=== PATIENT | female | born 1970 | race Caucasian/White ===

== ENCOUNTER 2016-09-30 21:13 | Inpatient (IN) | payer MEDICAID ==
[~2016-09-30] VITALS: Ht 152.4 cm; Wt 77.0 kg
--- NOTE | ~2016-09-30 | CON ---
PATIENT'S NAME: WILLAM RODRIGUEZ [facility] AGE: 45 Y [address] ROOM: [address] [address] LOCATION: [facility] [place] ADMIT DATE: 10/01/2016 Consultation DISCHARGE DATE: 10/07/2016 FAMILY PHYSICIAN: Kary Moreland ATTENDING PHYSICIAN: Harmeet York V DATE OF CONSULTATION: 10/02/2016 REFERRING PHYSICIAN: Trevon Paniagua MD TIME: 12:05 p.m. CHIEF COMPLAINT: Headache. HISTORY OF PRESENT ILLNESS: This is a previously healthy, 45-year-old female. For the past 3 days, she has been getting treated for migraines. They began about 72 hours ago and have become progressive and intractable. She has been to the ED for medications and actually went to her primary care physician and was started on Topamax. She describes the pain as in the forehead region and retrobulbar eye pain. She is definitely photophobic and phonophobic. There is no nuchal rigidity noted. There are no fevers, chills, or diaphoresis with this. She does have some nausea and a few episodes of vomiting. Previously tried medications include Toradol, Topamax, Dilaudid, and Zofran. She has also tried oxygen therapy. Her symptoms have not improved at all. She returned to the ED yesterday where she had an MRI which showed no acute intracranial abnormality and some scattered white matter foci of hyperintensity which is usually associated with chronic microangiopathy which would be consistent with migraine headache. She denies any chest pain or shortness of breath. She has had no recent contact with anyone ill. 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 REVIEW OF SYSTEMS: All systems have been reviewed and are negative aside from the pertinent positives and negatives as mentioned in the HPI. PAST MEDICAL HISTORY: She has had 4 sections. She also has some anxiety. CURRENT MEDICATIONS: 1. Topamax, which was started several days ago. 2. Unisom, which the patient started several months ago. 3. Bactrim p.r.n. as needed for UTIs. PATIENT'S NAME: WILLAM RODRIGUEZ [facility] AGE: 45 Y [address] 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 She smokes 1 to 2 cigarettes a day and denies any drug or alcohol abuse. FAMILY HISTORY: Significant for early-onset glaucoma in her sister. Her mother of bladder cancer, and her father has coronary artery disease. PHYSICAL EXAMINATION: VITAL SIGNS: Blood pressure 102/78, pulse 76, respirations 16, temperature 98.2, and saturating 94% on room air. GENERAL APPEARANCE: Well-developed, well-nourished female who appears her stated age, but appears in mild distress due to her headache and avoiding light. NEUROLOGICAL: She is alert and oriented x4. There is no nuchal rigidity. Cranial nerves 2 through 12 are intact. Gait not assessed due to the patient not feeling well. Pupils equal, round, and reactive to light and accommodation. Extraocular movements are intact. Motor strength is 5/5 upper and lower. Ntghzs-yi-ulmj and inzi-mg-ffiy testing intact. No dysmetria noted. LUNGS: Clear to auscultation. HEART: Regular rate with no murmurs, gallops, or rubs. ABDOMEN: Soft, nontender, and nondistended. GENITOURINARY: No costovertebral angle tenderness. DIAGNOSTIC STUDIES: Include the MRI which is unremarkable for any acute processes. She also had a CBC which revealed a white count of 8.0, a hemoglobin of 14.3, a hematocrit of 41.6, neutrophils were 6.5, and lymphocytes were 0.9. ASSESSMENT AND PLAN: In summary, this is a 45-year-old who really has never had migraines before. Her CBC and MRI appear within normal limits. She has no fevers or neck stiffness. This looks like an intractable migraine with status migrainosus. We will give Depakote IV at 15 mg a kg as a loading dose and then follow it q.8 hours with a maintenance dose. We will piggyback this with Toradol and then check her response in 24 hours. Thank you for allowing us to assist in the patient's care. JYOTI LOONEY APRN FOR FREEDOM MARK MD PATIENT'S NAME: WILLAM RODRIGUEZ [facility] AGE: 45 Y [address] ROOM: [place] [address] LOCATION: [facility] [place] ADMIT DATE: 10/01/2016 Consultation DISCHARGE DATE: 10/07/2016 FAMILY PHYSICIAN: Kary Moreland ATTENDING PHYSICIAN: Harmeet York PP/kevin /[id number] d: 10/15/16 1149 t: 10/17/16 1729, CONSULTATION REPORT
--- NOTE | ~2016-09-30 | CON ---
PATIENT'S NAME: WILLAM RODRIGUEZ [facility] AGE: 45 Y [address] ROOM: [address] [address] LOCATION: [facility] [place] ADMIT DATE: 10/01/2016 Consultation DISCHARGE DATE: FAMILY PHYSICIAN: Kary Moreland ATTENDING PHYSICIAN: MONSTER ALICIA V REFERRING PHYSICIAN: Trevon Paniagua MD I have seen the patient examined the patient via telemedicine. I have reviewed records and notes by Ms. Anabela Zamudio APRN and I agreed with her assessment. . The patient is a very pleasant 45-year-old woman with what appears to be status migraine. MRI of the head is essentially negative and unremarkable for any intracranial mass, lesion, or secondary cause of headaches. The incidental hyperintensities are and not clinically relevant. migraine. We will start a regimen of to be loaded at 15 mg/kg to be followed by 8 mg/kg IV q.8 hours as maintenance dose. Toradol will be given with this. We will re-evaluate and reassess her response tomorrow. Thank you for allowing us to assist in the patient's care. MD ROSEMARY MORRISON/kevin /[id number] d: t: 10/02/16 0100, CONSULTATION REPORT
--- NOTE | ~2016-09-30 | DS ---
PATIENT'S NAME: WILLAM RODRIGUEZ [facility] AGE: 45 Y [address] ROOM: [address] [address] [place] [facility] [place]: 10/01/2016 Discharge Summary DISCHARGE DATE: 10/07/2016 FAMILY PHYSICIAN: Kary Moreland ATTENDING PHYSICIAN: Harmeet York V CONSULTING PHYSICIANS: Rosibel Zamudio with Neurology who was working with Dr. Rock. DISCHARGE DIAGNOSES: 1. Herpes simplex virus 2 meningitis. 2. Intractable headache, secondary to herpes simplex virus 2 meningitis. 3. Nausea, secondary to intractable headache. 4. Hypotension, resolved. DISCHARGE MEDICATIONS: 1. Depakote 500 mg p.o. twice daily, #42 given, no refills, taper to be determined per Neurology at followup. 2. Ondansetron 4 mg sublingually q.4-6 h. p.r.n. nausea. 3. Valtrex 1000 mg p.o. t.i.d., last dose should be on 10/12/2016, number given quantity sufficient with no refills. 4. Dilaudid 2 mg 1 or 2 tablets q.6 h. p.r.n. pain, #20, given no refills. PERTINENT LABORATORY DATA: Upon admission, the patient has slightly low potassium at 3.6, otherwise her BMP was unremarkable. Creatinine 0.6, GFR greater than 60. CBC was also unremarkable with a normal white count of 5.1, hemoglobin 12.1, and platelets 192. The patient did have a serum serology test for viral, which should come back to show HSV 2 detected. A spinal tap was also performed, which also showed the HSV 2 detected on the viral panel. HOSPITAL COURSE: Please refer to the admitting H and P for more detailed outline on the patient's presentation. The patient was admitted by Dr. York to [facility] and she was started on IV fluids of normal saline at 120 mL/hr and a Neurology consult was ordered along with Ophthalmology. The patient was started on ergotamine/caffeine to help with her headaches. Zofran and Reglan were used to help manage her nausea and ultimately Dilaudid was used to help with management of her headaches along with DHE. The patient was seen by Dr. Alcantar on 10/01/2016 for Ophthalmology examination and felt that there was no ocular pathology at that time. The patient continued to have poorly- controlled intractable headaches and she was seen by Neurology on 10/01/2016 and was started on Depacon loading dose and Toradol. By 10/02/2016, we had a positive HSV on the CSF and IV acyclovir was initiated. An MRI and MRA of the brain was obtained on 10/02/2016, which was normal head MRA and normal head MRV. The patient had some difficulty with hypotension and this was resuscitated with IV fluid boluses; and ultimately on 10/03/2016, a Dilaudid PATIENT'S NAME: WILLAM RODRIGUEZ [facility] AGE: 45 Y [address] ROOM: [place] [address] [place] [facility] [place]: 10/01/2016 Discharge Summary DISCHARGE DATE: 10/07/2016 FAMILY PHYSICIAN: Kary Moreland ATTENDING PHYSICIAN: Harmeet York V OFFAL BALER was initiated. At that point, her headache became much better control with a rating of down to 4/10. The Depakote was continued 500 mg twice daily and Topamax was 25 mg daily and the acyclovir was continued IV form. The patient had really an uneventful weekend and continued on the Dilaudid OFFAL BALER and on 10/06/2016 had a bout of emesis and pain was rating 6-7/10. She was ultimately switched from IV acyclovir at that point to Valtrex orally. On the morning of 10/07/2016, the patient was doing much better. She is rating her headache 4/10. She was smiling, ambulating, had no complaint of nausea, and felt she was at the point she could go home. On the morning of 10/07/2016, the Dilaudid OFFAL BALER was discontinued and oral Dilaudid was employed. The Topamax was also discontinued. The patient will be discharged to her home on 10/07/2016. I have called and gave report to Kary Moreland PA-C who will gladly see the patient on 10/10/2016 at 11 a.m. in followup. The patient should follow up with Dr. Rich, our Neurology Clinic, in 2-3 weeks to discuss the potential for discontinuing the Depakote and/or taper. The patient voiced understanding of this plan. Prescriptions were sent with the patient for the Depakote and for the Dilaudid and also the Valtrex with a stop date for the patient noted. Discharge of this patient took approximately 35 minutes and included coordinating care with PCP, follow up with Neurology, reviewing of her medications, and filling out of the appropriate paperwork. AURELIO ROCHE PA-C FOR MD SANDY GELLER/kevin /[id number] CC: DAYANARA Bianchi d: 10/08/16 0041 t: 10/24/16 1832, DISCHARGE SUMMARY
--- NOTE | ~2016-09-30 | HP ---
PATIENT'S NAME: WILLAM RODRIGUEZ [facility] AGE: 45 Y [address] ROOM: [place] [address] LOCATION: [facility] [place] ADMIT DATE: 10/01/2016 History & Physical DISCHARGE DATE: 10/07/2016 FAMILY PHYSICIAN: Kary Moreland ATTENDING PHYSICIAN: Monster Alicia V DATE OF SERVICE: CHIEF COMPLAINT: Migraine headache. HISTORY OF PRESENT ILLNESS: The patient is a 45-year-old female who has been seen both in ED as well as in clinic multiple times in the last 3 days. The patient has been treated for migraines with Toradol, Topamax, Dilaudid, Zofran, IV fluids with minimal improvement in symptoms. The patient states headache started approximately 72 hours ago. She denies any prior history of migraine headache. Pain is primarily in the forehead region. She does also report some bilateral eye pain and pressure behind her eyes. Symptoms are associated with nausea, couple episodes of vomiting, as well as some photophobia. No neurologic symptoms are reported. No nuchal rigidity. No fever, chills. No weakness or numbness. No focal neurologic deficits. The patient was initially seen in the clinic. Has now been seen in the ER and clinic multiple times in the last couple of days. She has had a CAT scan that was normal today. The patient returned to the emergency room. MRI was performed, which demonstrated no acute intracranial abnormality, but did have some scattered white matter foci, chronic migraine angiopathy, and full differential would include demyelinating disease. REVIEW OF SYSTEMS: A 14-point review of systems was obtained and negative with the exception of those listed above. PAST MEDICAL HISTORY: No significant medical problems. PAST SURGICAL HISTORY: Four C sections, appendectomy, cholecystectomy, hysterectomy. MEDICATIONS: 1. Topamax, started several days ago. 2. Unisom for insomnia. 3. Bactrim as needed. 4. The patient was prescribed topiramate for weight loss several days ago, however, she states she has not yet picked up the prescription. PATIENT'S NAME: WILLAM RODRIGUEZ [facility] AGE: 45 Y [address] ROOM: [place] [address] LOCATION: [facility] [place] ADMIT DATE: 10/01/2016 History & Physical DISCHARGE DATE: 10/07/2016 FAMILY PHYSICIAN: Kary Moreland ATTENDING PHYSICIAN: Monster Alicia V SOCIAL HISTORY: She smokes 1 to 2 cigarettes a day. Denies any alcohol use. FAMILY HISTORY: Noncontributory. PHYSICAL EXAMINATION: VITAL SIGNS: The patient is afebrile blood pressure GENERAL: HEENT: Pupils are equal, round, and reactive to light. NECK: No lymphadenopathy. No rigidity. RESPIRATORY: Lungs are clear to auscultation bilaterally. CARDIOVASCULAR: Regular rate and rhythm. No murmur, rubs, or gallops. ABDOMEN: Soft, nontender, and nondistended. No CVA tenderness. ASSESSMENT AND PLAN: neurologic consultation MAYA EWING, SALARY AND WAGE ADMINISTRATOR FOR MONSTER ALICIA MD MDB/kevin /[id number] D: [id number] T: [id number] HISTORY & PHYSICAL
--- NOTE | ~2016-09-30 | HP ---
PATIENT'S NAME: WILLAM RODRIGUEZ [facility] AGE: 45 Y [address] ROOM: [place] [address] [place] [facility] [place]: 10/01/2016 History & Physical DISCHARGE DATE: FAMILY PHYSICIAN: Kary Moreland ATTENDING PHYSICIAN: MONSTER ALICIA V DATE OF SERVICE: CHIEF COMPLAINT: Headache. HISTORY OF PRESENT ILLNESS: The patient is a previously healthy 45-year-old female. For the last 3 days, she was getting treated for "migraines." They started gradually approximately 72 hours ago and became progressively worse and intractable. She further clarifies her symptoms as sharp pain in the forehead region, but when asked about eye pain, she actually does endorse bilateral eye pain which is retrobulbar. The symptoms are associated with some nausea and few episodes of vomiting. She does report photophobia, but no nuchal rigidity, fevers, chills, or diaphoresis. The patient was being treated in the outpatient clinic with Toradol as well as oxygen as well as Topamax. She has also received Dilaudid and Zofran in the ER several times. Her symptoms have not improved at all. Today, the patient returned to the ER where she had an MRI done. MRI demonstrated no acute intracranial abnormality, scattered white matter foci of hyperintensity usually associated with chronic microangiopathy, the differential would include demyelinating disease or microangiopathy. The patient denies any chest pain or shortness of breath. REVIEW OF SYSTEMS: All systems have been reviewed and are negative aside from pertinent positives mentioned above. PAST MEDICAL HISTORY: Four sections and some anxiety. CURRENT MEDICATIONS: 1. Topamax which was started several days ago. 2. Unisom which the patient started several months ago for insomnia. 3. Bactrim as needed for UTIs. SOCIAL HISTORY: PATIENT'S NAME: WILLAM RODRIGUEZ [facility] AGE: 45 Y [address] 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 She smokes 1 to 2 cigarettes a day and denies any drug or alcohol abuse. FAMILY HISTORY: Significant for early onset glaucoma in her sister. Her mother of bladder cancer and her father has had coronary artery disease. PHYSICAL EXAMINATION: VITAL SIGNS: Blood pressure 99/55, pulse 71, respirations 16, temperature 98.4, saturating 92% on room air. GENERAL APPEARANCE: Well-developed, well-nourished middle-aged female, in mild distress due to her headache and avoiding light. NEUROLOGICAL: Exam is nonfocal. There is no nuchal rigidity. EYES: Clear cornea without any haze or scleral injection. Her visual acuity is 20/30 bilaterally, checked by me. Extraocular muscles are intact. Pupils are equal and reactive to light bilaterally. LYMPHATIC: Shows no cervical lymphadenopathy. ENDOCRINE: Shows no thyromegaly. LUNGS: Clear to auscultation. HEART: Rate is regular with no appreciable murmurs, gallops, or rubs. ABDOMEN: Soft, nontender, nondistended. : No costovertebral angle tenderness. VASCULAR: 2+ pedal pulses. MUSCULOSKELETAL: Shows some firmness in her neck muscles, but nothing dramatic. DIAGNOSTIC STUDIES: Studies performed in the ER show an unremarkable laboratory workup and an MRI with findings as in the HPI. ASSESSMENT AND PLAN: This is a 45-year-old female, admitted with intractable headaches. Given the fact that her pain does localize to both of her eyes, I did raise the possibility of a possible subacute angle closure glaucoma, though the symptoms have been present for 3 days, and she does not have a typical stigmata of angle closure. I am currently trying to locate a Del-Pen to check the patient's intra-ocular pressures, but it does not appear that we have any in the hospital. We will request an Ophthalmology evaluation in the morning. At the mean time, we will attempt treating her symptoms with dihydroergotamine to see if there is any relief. We will get a Neurology consultation in the morning to further correlate her MRI findings. We will provide her with symptomatic nausea relief. We will hold off on doxylamine as that can cause/exacerbate acute angle closure glaucoma. Additional management will depend on clinical course. PATIENT'S NAME: WILLAM RODRIGUEZ [facility] AGE: 45 Y [address] ROOM: [place] [address] [place] [facility] [place]: 10/01/2016 History & Physical DISCHARGE DATE: FAMILY PHYSICIAN: Kary Moreland ATTENDING PHYSICIAN: MONSTER ALICIA V Time dedicated to this patient's encounter is 35 minutes. MD HELEN PEARSON/jamilahl /[id number] D: [id number] T: [id number] HISTORY & PHYSICAL
--- NOTE | ~2016-09-30 | ER ---
PATIENT'S NAME: WILLAM RODRIGUEZ [facility] AGE: 45 Y [address] ROOM: [place] [address] [place] [facility] [place]: 10/01/2016 ER/Outpatient Report DISCHARGE DATE: FAMILY PHYSICIAN: Kary Moreland ATTENDING PHYSICIAN: MONSTER ALICIA V Time of Arrival: 3 hours. Time of Evaluation: 2124 hours. CHIEF COMPLAINT: Migraine headache. HISTORY OF PRESENT ILLNESS: This is a 45-year-old female, who presents to the ER. She states she has been dealing with a migraine headache since Thursday. She was evaluated in the emergency room on Thursday and received a CT scan, blood work, and medication for her headache. She returned to the emergency room on Thursday and received more medication, was offered to be hospitalized at that time, but the patient wanted to go home. She did follow up with her primary care physician on Thursday, and then returned to her primary care physician twice today. She states that the medication that she has been getting has not been helping her and is back here in the ER again this evening. The patient states that she has had no recent illness. No fever or chills. She states she has had some nausea and few episodes of vomiting. She states that she has no fevers, chills, upper respiratory symptoms. No diarrhea, abdominal pain, chest pain, or shortness of breath. The patient denies any other problems at this time. ALLERGIES: NO KNOWN ALLERGIES. MEDICATIONS: Please see medication list in nurse's notes. PAST MEDICAL HISTORY: sections, some anxiety, appendectomy, cholecystectomy, hysterectomy. SOCIAL HISTORY: Smokes cigarettes. Denies any drug or alcohol use. REVIEW OF SYSTEMS: A 10-point review of system was completed and was negative with the exception of those discussed in the HPI. PHYSICAL EXAMINATION: VITAL SIGNS: Height 5 feet stated, weight 76.4 kg taken, blood pressure is PATIENT'S NAME: WILLAM RODRIGUEZ [facility] AGE: 45 Y [address] ROOM: [address] [address] [place] [facility] [place]: 10/01/2016 ER/Outpatient Report DISCHARGE DATE: FAMILY PHYSICIAN: Kary Moreland ATTENDING PHYSICIAN: MONSTER ALICIA V 164/93, pulse 102, respirations 18, temperature 100.0 degrees tympanically, saturations 94% on room air. [place] Coma Score is 15. GENERAL: An alert, calm, well-developed female, in mild distress due to headache. She does have a towel over her eyes. HEENT: Head: Normocephalic. She does display moist mucous membranes. Ears: TMs display good light reflexes bilaterally. Auditory canals clear. Nose: Turbinates pink with no drainage. Eyes: Pupils are equal and reactive to light. NECK: Supple. No lymphadenopathy. She has no nuchal rigidity. LUNGS: Clear to auscultation. HEART: Regular rate and rhythm. ABDOMEN: Soft, nontender. Good bowel sounds throughout. EXTREMITIES: No clubbing or cyanosis. She has full range of motion of all limbs. SKIN: Warm, dry, and intact. NEUROLOGIC: Cranial nerves 2 through 12 grossly intact. Gait is steady with a slow gait. LABORATORY DATA AND X-RAYS: CBC: White count is 8.0, hemoglobin is 14.3, platelets 283, ANC is 6.5, INR is 0.97. CMS: Glucose 110, estimated GFR 59, BUN 8, creatinine 1.0. We did do an MRI of the head, shows no acute intracranial abnormality. She does have some scattered white matter foci of hyperintensity associated with chronic microangiopathy. The differential would include demyelinating disease or migraine angiography. IMPRESSION: Intractable headache. ASSESSMENT AND PLAN: We did start an IV here in the emergency room. Did give her a liter of IV fluids along with Benadryl 50 mg IV, Compazine 10 mg IV, and Toradol 30 mg IV. The patient states that this did not improve her pain. Therefore, I did give her Dilaudid 0.5 mg IV. The patient was sound asleep, and when we would arouse her, she would still state that her pain is no better. I therefore called Dr. Sadie Rapp, who is on-call for family practice, and she will be coming in to evaluate the patient and contact the Hospitalist Service. The patient and the patient's significant other understand and agree with care. REGIS GOMEZ PA-C FOR SUZEDO JUAN LUIS LOVETT/kevin PATIENT'S NAME: WILLAM RODRIGUEZ [facility] AGE: 45 Y [address] ROOM: [place] [address] [place] [facility] [place]: 10/01/2016 ER/Outpatient Report DISCHARGE DATE: FAMILY PHYSICIAN: Kary Moreland ATTENDING PHYSICIAN: MONSTER ALICIA V /[id number] d: 10/01/162137 t: 10/13/16 1024, OUTPATIENT REPORT
[2016-09-30 21:59] LABS: BASOPHIL % 0.2 %; EOSINOPHIL # 0.1 K/uL (0.0-0.5); EOSINOPHIL % 0.7 %; HEMATOCRIT 41.6 % (33.0-46.0); HEMOGLOBIN 14.3 g/dL (10.0-15.0); IMMATURE GRANULOCYTE % 0.4 %; LYMPHOCYTE # 0.9 K/uL (0.8-4.0); LYMPHOCYTE % 11.1 %; MCH 32.6 pg (27.0-34.0); MCHC 34.4 gm/dL (32.0-36.5); MONOCYTE # 0.6 K/uL (0.0-1.0); MONOCYTE % 7.1 %; MPV 9.5 fl (9.4-12.4); NEUTROPHIL # (ANC) 6.5 K/uL (1.8-7.8); NEUTROPHIL % 80.5 %; NRBC % 0 /100WBC (0-0.00); PLATELET COUNT 238 K/uL (150-450); RBC 4.38 M/uL (3.50-5.50); RDW-CV 11.2 % (11.9-14.6)
[2016-09-30 22:10] LABS: INR - (THERAPEUTIC) 0.97 (0.92-1.07); PROTIME 10.2 SECONDS (9.8-11.4); PTT 30 SECONDS (25-32)
[2016-09-30 22:15] LABS: ALBUMIN 3.6 gm/dL (3.5-5.0); CALCIUM 8.4 mg/dL (8.5-10.5); TOTAL PROTEIN 7.1 g/dL (6.0-8.4)
[2016-09-30 22:17] LABS: TOTAL BILIRUBIN 0.3 mg/dL (0.0-1.5)
[2016-10-01] MEDS ORDERED: ZOFRAN ODT 4 MG4 MG SL (01:46)
[2016-10-01] MEDS ORDERED: BACTRIM DS1 TAB PO (01:47)
--- NOTE | 2016-10-01 01:47 | NUR ---
Patient is having throbbing headaches in the frontal part of head and down the side of the neck to the shoulder blades. This began Thursday and came to the ER and then went home. Then went to [facility] Thursday and Thursday twice. Came into the ER at 2100 on 09/30/16 and was admitted. Patient states that she has been nauseous during this time and had vomited.
[2016-10-01] MEDS ORDERED: FLEXERIL10 MG PO ×2 (01:49→01:50)
[2016-10-01] MEDS ORDERED: PHENERGAN25 M1 PO (01:51)
[2016-10-01] MEDS ORDERED: TOPAMAX50 MG PO (01:57)
[2016-10-01] MEDS ORDERED: UNISOM 25 MG25 MG PO (01:59)
[2016-10-01] MEDS ORDERED: IMITREX50 MG PO (02:04)
[2016-10-01] MEDS ORDERED: ATIVAN 0.5MG0.5 MG PO (02:10)
--- NOTE | 2016-10-01 04:47 | NUR ---
Significant Event: Admitted at 0120. Frontal lobe headache and down neck to shoulderblades. Hypotensive, but better now. On telemetry with no calls. On room air. Family at bedside. Optomalogist consult this AM. Neurologist consult this AM. Reglan at 0328. Diahydroergotamine at 0335 and stated that her pain went from a 6-4 after this medication. Follow up:
--- NOTE | 2016-10-01 16:26 | NUR ---
Significant Event: Patient is alert and oriented x3. VSS and on RA. Patient has been having excruiating headaches on and off all day. Not able to tolerate light or sound very well. Headache worsens upon movement, especially to the bathroom. Aqua K pad placed- heat helps. Topomax given at 0739- no relief noted. Dilaudid then given at 0826- relief noted. Dilaudid given a second time at 1220- relief noted. Nauseated on and off. Had one emesis today in the toliet. Zofran last given at 0827 and reglan at 1313- relief noted. DHE last given at 0649- with minimal relief noted. Dr. Alcantar came and evaluated patient and states IOP is normal. Neurology yet to see. IV in the L)Hand infiltrated, still working on trying to get a new IV at this time. Tele on, no calls. Having loose stools. Up with 1PA. Cooperative with cares Follow Up: Neurology consult, pain control
[2016-10-02 16:15] LABS: ANION GAP 14.2 (10.0-19.0); BLOOD UREA NITROGEN 8 mg/dL (6-24); CALCIUM 8.4 mg/dL (8.5-10.5); CHLORIDE 113 mMol/L (96-110); CO2 21 mMol/L (22-32); CREATININE 0.8 mg/dL (0.5-1.1); ESTIMATED GFR (MDRD EQUATION) > 60; SODIUM 144 mMol/L (135-145)
[2016-10-02 16:17] LABS: POTASSIUM 4.2 mMol/L (3.7-5.1)
--- NOTE | 2016-10-02 19:28 | NUR ---
Significant Event: Patient is alert and oriented x3. VSS and on RA. Dilaudid given throughout the shift. Relief noted. Imitrex given- no relief noted. Had lumbar puncture- positive for HSV2. MD notified and started on acycylovir. Standard precautions needed per infection control. Good hand hygeine. Having small mushy loose BMs. Voiding adequately. R)upper arm IV fluids infusing. Able to tolerate a little bit of light today, appears to be doing better than yesterday. Decreased IV fluid rate. Has scheduled zofran. Cooperative with [facility]. Was able to shower this morning.
--- NOTE | 2016-10-03 04:55 | NUR ---
Significant Event: Patient alert and orineted X4. Up with stand by assist. Slightly hypotensive in high 90s. On room air. R) upper arm IV with NS at 75 and intermittnet SOURAV. IVP dilaudid last at 0445. Relief noted. Telemetry on, no calls. Scheduled zofran. MRI done yesterday. Neuro on. Infection control nurse called for update on pt last night. Follow up: Monitor head ache
[2016-10-03 05:29] LABS: BASOPHIL % 0.6 %; EOSINOPHIL # 0.1 K/uL (0.0-0.5); EOSINOPHIL % 2.8 %; HEMATOCRIT 35.6 % (33.0-46.0); HEMOGLOBIN 12.3 g/dL (10.0-15.0); IMMATURE GRANULOCYTE % 0.4 %; LYMPHOCYTE # 1.4 K/uL (0.8-4.0); LYMPHOCYTE % 28.3 %; MCH 32.5 pg (27.0-34.0); MCHC 34.6 gm/dL (32.0-36.5); MCV 94.2 fl (83.0-98.0); MONOCYTE # 0.5 K/uL (0.0-1.0); MPV 9.4 fl (9.4-12.4); NEUTROPHIL # (ANC) 2.9 K/uL (1.8-7.8); NEUTROPHIL % 57.9 %; NRBC % 0 /100WBC (0-0.00); PLATELET COUNT 200 K/uL (150-450); RBC 3.78 M/uL (3.50-5.50); RDW-CV 11.2 % (11.9-14.6)
[2016-10-03 05:42] LABS: ANION GAP 10.6 (10.0-19.0); BLOOD UREA NITROGEN 9 mg/dL (6-24); CHLORIDE 112 mMol/L (96-110); CO2 25 mMol/L (22-32); CREATININE 0.8 mg/dL (0.5-1.1); ESTIMATED GFR (MDRD EQUATION) > 60; PHOSPHORUS 3.3 mg/dL (2.5-4.9); POTASSIUM 3.6 mMol/L (3.7-5.1); SODIUM 144 mMol/L (135-145)
--- NOTE | 2016-10-03 15:26 | NUR ---
Significant Event: Patient is alert and oriented x3. Blood pressure this morning was 91/54- two fluid boluses given and brought up to 103/59. MD notified about pain medication with a low blood pressure she ordered to start a dilaudid CERTIFIED LOW VISION THERAPIST. Relief noted. Scheduled zofran. D/C IV toradol, depakote. Decreased topomax dose. Restarted on depakote PO. Potassium 20meq PO given. Increased fluids to 100ml/hr. Tele on, no calls. Showered today. Up with SBA- does get dizzy occasionally. Able to tolerated a little more food today. Cooperative with cares.
--- NOTE | 2016-10-04 04:38 | NUR ---
Significant Event:Pt alert and oriented x3. pleasant [facility] staff and cares. started shift out very well, ate 100% of supper up watcing movie with boyfriend. vss,lung sounds clear, rated pain at 2/10, as night went on pt has periods of restlesness,and pain, risk mgr pump had 70demands with 16 delivered. 3.13mg of medication recieved.pt still sensitive to light.zofran given as ordered. pt up with stand by assist, contient of blader. no bm this shift. iv to right upper arm running nacl at 100ml/hr. pt uses call light approp. Follow up:
[2016-10-04 05:28] LABS: ANION GAP 12.6 (10.0-19.0); BLOOD UREA NITROGEN 5 mg/dL (6-24); CALCIUM 7.8 mg/dL (8.5-10.5); CHLORIDE 111 mMol/L (96-110); CO2 23 mMol/L (22-32); CREATININE 0.6 mg/dL (0.5-1.1); ESTIMATED GFR (MDRD EQUATION) > 60; POTASSIUM 3.6 mMol/L (3.7-5.1); SODIUM 143 mMol/L (135-145)
--- NOTE | 2016-10-04 16:27 | NUR ---
Significant Event: Patient alert and oriented. Patient c/o a severe headache this morning and rating it at a 10/10. ACOUSTICS TEACHER of Dilaudid at 0.2mg/hr with a 0.1mg bolus and a 20 min lockout with a total of 4.21 mg infused with 137 demands and 20 deliveries. Patient now rating pain at a 6/10 this afternoon. O2 sats down to 88% on room air when sleeping. O2 at 2 l/nc with sats in the mid 90's. Up to the bathroom with assist to void and patient states feeling lightheaded when out of bed. Continues on IV Acyclovir. Follow up: Monitor pain.
[2016-10-05 05:03] LABS: BASOPHIL % 0.2 %; EOSINOPHIL # 0.1 K/uL (0.0-0.5); EOSINOPHIL % 1.6 %; HEMOGLOBIN 12.1 g/dL (10.0-15.0); IMMATURE GRANULOCYTE % 0.2 %; LYMPHOCYTE # 1.1 K/uL (0.8-4.0); LYMPHOCYTE % 21.1 %; MCH 32.5 pg (27.0-34.0); MCHC 34.6 gm/dL (32.0-36.5); MCV 94.1 fl (83.0-98.0); MONOCYTE # 0.5 K/uL (0.0-1.0); MONOCYTE % 9.3 %; MPV 9.4 fl (9.4-12.4); NEUTROPHIL # (ANC) 3.4 K/uL (1.8-7.8); NEUTROPHIL % 67.6 %; NRBC % 0 /100WBC (0-0.00); PLATELET COUNT 192 K/uL (150-450); RBC 3.72 M/uL (3.50-5.50); RDW-CV 11.3 % (11.9-14.6); WBC 5.1 K/uL (4.0-11.0)
[2016-10-05 05:22] LABS: ANION GAP 11.9 (10.0-19.0); CALCIUM 8.2 mg/dL (8.5-10.5); CHLORIDE 111 mMol/L (96-110); CO2 25 mMol/L (22-32); CREATININE 0.6 mg/dL (0.5-1.1); ESTIMATED GFR (MDRD EQUATION) > 60; MAGNESIUM 2.1 mg/dL (1.8-2.6); POTASSIUM 3.9 mMol/L (3.7-5.1); SODIUM 144 mMol/L (135-145)
[2016-10-05 05:25] LABS: BLOOD UREA NITROGEN 2 mg/dL (6-24)
--- NOTE | 2016-10-05 06:48 | NUR ---
Significant Event: Patient up to bathroom 11 times throughout the night. Had one emesis. DHE given x 1 around 2315 which was somewhat helpful. Continues to complain of frontal headache started out at 5 but now rating at 8. Also suggested ice but patient refused. 5 mg of reglan given x1 which she said took the edge off. Alert and orientated, significant other at bedside. Follow up: Continue to monitor.
--- NOTE | 2016-10-05 19:23 | NUR ---
Significant Event: Patient alert and oriented. Up with minimal assist to the bathroom and ambulated in the hallway. Patient c/o headache and rating it at a 9 this morning. DHE 0.4 mg IV given at 0822 and pain down to a 4 and has since been rating it at a 5/10. Continues on IV Acyclovir and routine Zofran. Dilaudid METAL BENDING MACHINE OPERATOR at 0.2 mg/hr with 0.1 mg bolus and a 20 min lockout. Patient had a total of 3.1 mg infused with 74 demands and 10 deliveries. Follow up: Monitor pain.
--- NOTE | 2016-10-06 04:28 | NUR ---
Significant Event:Patient was having better control of her headache early in the shift and rating her pain at 4-5. However as the night progressed she was tearful rating her pain at a 8-9. DHE-45 given at 2:30 which was helpful and she then reported her pain at a 2. Up with stand-by assist to bathroom. Significant other at bedside. Continues on MINE SAFETY MANAGER of dilaudid. Follow up: Continue to monitor.
[2016-10-06 05:46] LABS: ANION GAP 10.6 (10.0-19.0); BLOOD UREA NITROGEN 2 mg/dL (6-24); CALCIUM 8.2 mg/dL (8.5-10.5); CHLORIDE 110 mMol/L (96-110); CO2 27 mMol/L (22-32); CREATININE 0.6 mg/dL (0.5-1.1); ESTIMATED GFR (MDRD EQUATION) > 60; POTASSIUM 3.6 mMol/L (3.7-5.1); SODIUM 144 mMol/L (135-145)
--- NOTE | 2016-10-06 14:26 | NUR ---
A-SCREENED D/T LOS ADMITTED FOR INTRACTABLE HEADACHES. N/V HT: 60 IN. WTl 77.0 KG. BMI: 33.1 LABS: NA 144, K+ 3.6, GLU 74, BUN 2, OPTOMETRIC AIDE 0.6, ALB 3.0 MEDS: ZOVIRAX, TUMS, REGLAN, DEPAKOTE, PHENERGAN, DILAUDID, NARCAN, ZOFRAN, PROTONIX DIET RX: REGULAR. PO INTAKE HAS BEEN REFUSALS-BITES. VISITED W/PT TODAY RE: PO INTAKE AND APPETITE. PT SAYS SHE IS TRYING TO EAT MORE; HER APPETITE IS IMPROVING A LITTLE. OFFERED ENSURE CLEAR TO PROVIDE ADDITIONAL NUTRIENTS D/T HER N/V. PT WAS AGREEABLE TO TRYING APPLE FLAVOR. EST NUTR NEEDS: 9805-0612 KCALS (20-25 KCALS/KG) 68-90 GM PROTEIN (1.5-2.0 GM/KG IBW) 1 ML FLUID/KCAL D-AT NUTRITION RISK W/INADEQUATE INTAKE OF NUTRIENTS R/T N/V, DECREASED APPETITE AEB PT REPORT, INTAKE RECORDS, CHART REVIEW. I-START APPLE ENSURE CLEAR TID M/E-GOAL: PO INTAKE >/=505 BY NEXT F/U 1)F/U PO INTAKE, SUPPLEMENT, GI, AND POC IN 3-5 DAYS 2)ASSIST NEEDED
--- NOTE | 2016-10-06 15:30 | NUR ---
SPOKE TO PATIENT REGARDING CM AND OUR ROLE. PATIENT LIVES IN OWN HOME SHE HAS S.O. PATIENT IS PLANNING ON BEING DISCHARGE TOMORROW. SHE DOES NOT ANTICIPATE ANY DISCHARGE NEEDS AT THIS TIME.
--- NOTE | 2016-10-06 15:49 | NUR ---
Significant Event: Patient alert and oriended x3. Up with supervision, independent with cares. Patient rated pain 8/10 this morning. Gave topamax around 0830, there shortly after, patient had emisis with no medication visible. Zofran given. Patient took a walk down the hallway and has been tolerating light and movement well Rates headache 4-6 pain thoughout day on Dilaudid HANDICAPPED TEACHER pump- total amount of 3.76 with 100 demands and 16 deliveries. Follow up: Monitor pain.
--- NOTE | 2016-10-07 04:30 | NUR ---
Significant Event: Patient is alert and oriented x 3. VSS on 1L of O2. Up with standby assist. On telemetry, no calls. Right upper arm IV with NS running at 100 ml/hr and Dilaudid THEATER SET PRODUCTION DESIGNER 0.2 mg continuous with 0.1 mg demand dose q20 minutes. Voiding well. Patient is pleasant and cooperative with cares. Follow up:
[2016-10-07] MEDS ORDERED: DEPAKOTE EXTEN500 MG PO (14:58)
[2016-10-07] MEDS ORDERED: VALTREX1000 MG PO (15:00)
[2016-10-07] MEDS ORDERED: DILAUDID 2MG(HYD2 MG PO (15:01)
--- NOTE | 2016-10-07 15:19 | NUR ---
D: ORDERS RECEIVED FOR THE PATIENT TO BE DISCHARGED TO HOME TODAY I: DISMISSAL INSTRUCTIONS WERE PREPARED AND REVIEWED WITH THE PATIENT VIRTUALLY. THE FOLLOWING INFORMATION WAS DISCUSSED INCLUDING KRAMES TEACHING SHEETS PROVIDED: MENINGITIS, DEPAKOTE ER, VALTREX, DILAUDID, AND PREVENTING DVT. REVIEWED FOLLOWING UP APPOINTMENTS WITH DR. CRUMP AND DR. SMITH AND ALL NEW PRESCRIPTIONS REVIEWED WHY SHE IS TAKING THEM AND POSSIBLE SIDE EFFECTS. ALSO DISCUSSED SHE WILL NEED TO TAKE THEM TO HER PHARMACY TO BE FILLED AFTER SHE RECEIVED THE PRESCRIPTIONS. R: THE PATIENT VERBALIZED UNDERSTANDING OF THE DISMISSAL EDUCATION AT THE TIME OF TEACHING WITH NO FURTHER QUESTIONS. P: THE ABOVE INFORMATION WAS SHARED WITH THE PRIMARY NURSE AND THE CHARGE NURSE THAT THE DISMISSAL EDUCATION WAS COMPLETED. THE PATIENT IS READY FOR DISCHARGE TO THE [facility]IA WHEEL [facility]AIR BY NURSING STAFF.
== END 2016-10-07 16:00 | disposition disaster alternative care site (69) | DRG 76 ==
LOC: GMED 21:13 → GMSU 10-01 00:55
PROVIDERS: Emergency Medicine; Internal Medicine; Nurse Practitioner Family; ADMIT Internal Medicine
PROC: 009U3ZZ Drainage of Spinal Canal, Percutaneous Approach (ICD-10-PCS; principal; 2016-10-02)
DX: B00.3 Herpesviral meningitis (principal); I95.9 Hypotension, unspecified; E03.9 Hypothyroidism, unspecified; E87.6 Hypokalemia; G43.919 Migraine, unspecified, intractable, without status migrainosus; K21.9 Gastro-esophageal reflux disease without esophagitis; F41.9 Anxiety disorder, unspecified; F17.210 Nicotine dependence, cigarettes, uncomplicated; E66.9 Obesity, unspecified; Z68.33 Body mass index [BMI] 33.0-33.9, adult; R10.13 Epigastric pain
CPT/HCPCS: A9577; J0133; J0780; J1110; J1170; J1200; J1885; J2405; J2550; J2765; J3030; J7030; J7040; J7060